=== PATIENT | male | born 2000 | race African-American/Black ===

== ENCOUNTER 2018-09-07 10:44 | Emergency (ER) | payer OTHER ==
[2018-09-07 11:11] VITALS: BP 127/84; PULSE 73; TEMP 97.9; BMI 25.8
[2018-09-07] MEDS ORDERED: IBUPROFEN 600 MG TABLET (FP) PO ONE ×2 (11:51→11:54)
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
== END 2018-09-07 15:00 | disposition left against medical advice (07) ==
LOC: JER 10:44
DX: M79.651 Pain in right thigh (principal); V03.10XA Pedestrian on foot injured in collision with car, pick-up truck or van in traffic accident, initial encounter; Y93.89 Activity, other specified; Y92.410 Unspecified street and highway as the place of occurrence of the external cause; F17.210 Nicotine dependence, cigarettes, uncomplicated
CPT/HCPCS: 73552-TC-RT-FY; 99282-25